=== PATIENT | male | born 1990 | race Caucasian/White ===

== ENCOUNTER 2018-04-02 13:22 | Emergency (ER) | payer SELFPAY ==
[2018-04-02] MEDS ORDERED: IBUPROFEN 200 MG TAB PO ONE (13:51)
[2018-04-02] MEDS ORDERED: KETOROLAC TROMETHAMINE INJ 60 MG/2 ML VIAL IM ONE (13:54)
--- NOTE | 2018-04-02 14:13 | ED.PDOC ---
History of Present Illness - General Chief Complaint: Respiratory Problem Stated Complaint: FEVER, WEAKNESS, COUGH Time Seen by Provider: 04/02/18 14:10 Source: patient, RN notes reviewed Exam Limitations: no limitations Additional Information: 27 YEAR OLD OBESE YOUNG MAN PRESENTS WITH FEVER GENERAL BODY ACHE FEVER CHILLS FOR THE PAST FEW DAYS HE HAS NO KNOWN MEDICAL ILLNESS HE HAS RUNNY NOSE COUGH WELL - History of Present Illness Timing/Duration: constant, getting worse Severity: moderate Improving Factors: nothing Worsening Factors: nothing Associated Symptoms: denies symptoms Allergies/Adverse Reactions: Allergies Milk-related Compounds Adverse Reaction (Verified 09/28/14 11:57) Home Medications: Ambulatory Orders Ondansetron [Zofran Odt] 4 mg PO BID PRN #10 tab 09/28/14 Tramadol HCl 50 mg PO QID PRN #20 tab 09/28/14 Oseltamivir Capsule [Tamiflu] 75 mg PO BID 5 Days #10 capsule 04/02/18 Review of Systems - Review of Systems Constitutional: States: no symptoms reported EENTM: States: no symptoms reported Respiratory: States: no symptoms reported Cardiology: States: no symptoms reported Gastrointestinal/Abdominal: States: no symptoms reported Genitourinary: States: no symptoms reported Musculoskeletal: States: no symptoms reported Skin: States: no symptoms reported Neurological: States: no symptoms reported Endocrine: States: no symptoms reported Hematologic/Lymphatic: States: no symptoms reported Past Medical History (General) - Patient Medical History Hx Seizures: No Hx Stroke: No Hx Asthma: Yes - Bronchitis as well Hx of COPD: No Hx Cardiac Disorders: No Hx Congestive Heart Failure: No Hx Hypertension: No Hx Diabetes: No Hx Renal Disease: No Hx Cancer: No Hx Hepatitis C: No Surgical History: no surgical history - Vaccination History Hx Influenza Vaccination: Yes Hx Pneumococcal Vaccination: Yes - Social History Hx Tobacco Use: No Hx Chewing Tobacco Use: No Hx Alcohol Use: No Hx Substance Use: No Hx Substance Use Treatment: No Hx Depression: Yes - Just lost father. Hx Physical Abuse: No Hx Emotional Abuse: No Hx Suspected Abuse: No - Female History Patient : No Family Medical History - Family History Father Hx Family Congestive Heart Failure: Yes Physical Exam - Physical Exam General Appearance: Alert, Anxious Eye Exam: bilateral normal Ears, Nose, Throat: hearing grossly normal, normal ENT inspection Neck: non-tender, full range of motion, supple Respiratory: chest non-tender, lungs clear, normal breath sounds, no respiratory distress, no accessory muscle use Cardiovascular/Chest: normal peripheral pulses, regular rate, rhythm, no edema, no gallop, no JVD, no murmur Peripheral Pulses: radial,right: 2+, radial,left: 2+, femoral,right: 2+, femoral,left: 2+, popliteal,right: 2+, popliteal,left: 2+ Gastrointestinal/Abdominal: normal bowel sounds, non tender, soft, no organomegaly Back Exam: normal inspection, no CVA tenderness, no vertebral tenderness Skin Exam: normal color, warm/dry Departure - Departure Clinical Impression: Influenza A Clinical Impression: (Ruled Out): Postural hypotension Time of Disposition: 14:18 Disposition: Discharge to Home or Self Care Condition: Fair Departure Forms: ED Discharge - Pt. Copy, Patient Portal Self Enrollment Diet: resume usual diet Activity: as per physical therapy Prescriptions: Oseltamivir Capsule [Tamiflu] 75 mg PO BID 5 Days #10 capsule Home Medications: Ambulatory Orders Ondansetron [Zofran Odt] 4 mg PO BID PRN #10 tab 09/28/14 Tramadol HCl 50 mg PO QID PRN #20 tab 09/28/14 Oseltamivir Capsule [Tamiflu] 75 mg PO BID 5 Days #10 capsule 04/02/18
[2018-04-02] MEDS ORDERED: SODIUM CHLORIDE 0.9% 1000ML 1,000 ML IVS ONE (14:15)
--- NOTE | 2018-04-02 14:33 | RAD ---
EXAM DESCRIPTION: Chest,1 View CLINICAL HISTORY: 27 years Male, R/O EFFUSION COMPARISON: None. TECHNIQUE: AP portable chest. FINDINGS: Fair expansion of the lungs is evident without consolidation, layering effusion, or large mass. Lung volume are small but the lungs appear clear without consolidation Heart size and vascularity appear normal for AP technique and degree of inspiration. No gross bony, hilar, or mediastinal abnormalities are noted. IMPRESSION: Normal chest, one view Electronically signed by: Saeed Baltazar MD 04/02/2018 2:31 PM [facility]
[2018-04-02 15:09] VITALS: BP 132/100; TEMP 101.2; O2SAT 96
== END 2018-04-02 14:45 | disposition home or self-care (01) ==
LOC: ER 13:22
DX: J10.1 Influenza due to other identified influenza virus with other respiratory manifestations (principal); E66.9 Obesity, unspecified; J45.909 Unspecified asthma, uncomplicated; F32.9 Major depressive disorder, single episode, unspecified
CPT/HCPCS: 71045; 87502; J1885